=== PATIENT | male | born 1950 | race Caucasian/White ===

== ENCOUNTER 2017-02-13 15:09 | Emergency (ER) | payer MEDICARE, MEDICAID ==
[~2017-02-13 15:09] MED LIST: ADDE20XR PO; AZIT250T3 PO; BROMSYP PO; CHLOR50 PO; COLA100C3 PO; LORA-474 PO; LOSA50TA PO; MAGICADU2 SWISH-SWAL; METO50TA PO; OMEP20TA PO; REST0.05 EACH EYE
[2017-02-13 15:28] VITALS: BP 134/68; PULSE 88; RESP 18; TEMP 98.4; O2SAT 98
[2017-02-13] MEDS ORDERED: PIPERACIL-TAZO 4.5 GM PREMIX 100 ML IV STA (15:35)
[2017-02-13 15:38] VITALS: O2SAT 97
--- NOTE | 2017-02-13 15:40 | PD ---
HPI Chief Complaint: Chest Pain Time Seen by Provider: 15:39 Travel History International Travel<30 days: No Contact w/Intl Traveler<30days: No Traveled to known affect area: No History of Present Illness HPI Patient comes in complaining of possible UTI. Patient reports he began yesterday with a subjective fever and headache then began having sharp stabbing pain in his left ear pain, left-sided chest pain, and low back pain. Patient states that he has a history of frequent UTIs has been septic before. Patient states he's been taking ibuprofen for this and seems to help with the fevers. Last dose took shortly prior to arrival. He denies any nausea, vomiting, diarrhea, abdominal pain, shortness of breath, or numbness or tingling anywhere. Patient reports associated urinary incontinence that he states happens anytime he gets a urinary tract infection. Patient states he has a follow-up appointment scheduled with his primary care doctor tomorrow at 2 PM, but did not feels that he could wait until then for evaluation. PFSH Past Medical History ADHD: Yes Anxiety: Yes Depression: Yes Cardiovascular Problems: Yes COPD: Yes Diabetes: Yes Patient Takes Glucophage: No Diminished Hearing: No GERD: Yes Genitourinary: No Hepatitis: Yes (B) Hypertension: Yes Neurologic: No Respiratory: Yes (COPD) Immunizations Current: Yes Past Surgical History Genitourinary Surgery: Yes (TURP prostate sx 09/29/15) Tonsillectomy: Yes Other Surgery: Yes (pilonidal cyst) Social History Alcohol Use: Yes (OCCASSIONAL) Tobacco Use: No (USES VAPE) Substance Use: No Allergies-Medications (Allergen,Severity, Reaction): Coded Allergies: Hydrocodone (Verified Allergy, Intermediate, Cold, lowered pulse, 12/23/16) Codeine (Verified Allergy, Unknown, 12/23/16) Reported Meds & Prescriptions Reported Meds & Active Scripts Active Cipro (Ciprofloxacin HCl) 500 Mg Tab 500 Mg PO BID 7 Days Chlorthalidone 50 Mg Tab 50 Mg PO DAILY Omeprazole 20 Mg Tab 20 Mg PO DAILY Metoprolol Tartrate 50 Mg Tab 50 Mg PO BID Ativan (Lorazepam) 1 Mg Tab 1 Mg PO Q6H PRN Reported Advil (Ibuprofen) 200 Mg Tab 400 Mg PO Q6HR PRN Entecavir 0.5 Mg Tab 0.5 Mg PO DAILY Losartan (Losartan Potassium) 50 Mg Tab 50 Mg PO BID Amphetamine-Dextroamphetamine 20 Mg Tab 20 Mg PO BID Avoid late evening doses. Space doses at least 4 to 6 hours if more than once/day dosing. Restasis Opth Drops (Cyclosporine Opth Drops) 0.05% Emul 1 Drop EACH EYE BID Review of Systems Except as stated in HPI: all other systems reviewed are Neg Physical Exam Narrative GENERAL: Well-developed, overly nourished, in no acute distress, and non-ill appearing. SKIN: Focused skin assessment warm and dry. HEAD: Atraumatic. Normocephalic. EYES: Pupils equal and round. EOMI. No scleral icterus. No injection or drainage. ENT: No nasal bleeding or discharge. Mucous membranes pink and moist. Tympanic membranes pearly zimmer bilaterally. Posterior pharynx erythematous with exudate. Uvula is midline. NECK: Trachea midline. No cervical lymphadenopathy. Supple. No nuclear rigidity. CARDIOVASCULAR: Regular rate and rhythm. No murmur appreciated. RESPIRATORY: No accessory muscle use. No respiratory distress. Clear to auscultation. Breath sounds equal bilaterally. GASTROINTESTINAL: Abdomen soft, non-tender, nondistended. Hepatic and splenic margins not palpable. Normal bowel sounds 4. No pulsatile mass. MUSCULOSKELETAL: No obvious deformities. No clubbing. No cyanosis. No edema. Full range of motion. NEUROLOGICAL: Awake and alert. No obvious cranial nerve deficits. Motor grossly within normal limits. Normal speech. PSYCHIATRIC: Appropriate mood and affect; insight and judgment normal. Data Data Last Documented VS Vital Signs Date Time Temp Pulse Resp B/P Pulse Ox O2 Delivery O2 Flow Rate FiO2 02/13/17 15:38 97 Room Air 02/13/17 15:36 18 02/13/17 15:28 98.4 88 134/68 Orders Electrocardiogram (02/13/17 15:35) Complete Blood Count With Diff (02/13/17 15:35) Comprehensive Metabolic Panel (02/13/17 15:35) Prothrombin Time / Inr (Pt) (02/13/17 15:35) Act Partial Throm Time (Ptt) (02/13/17 15:35) Lactic Acid Sepsis Protocol (02/13/17 15:35) Magnesium (Mg) (02/13/17 15:35) Ckmb (Isoenzyme) Profile (02/13/17 15:35) Troponin I (02/13/17 15:35) Urinalysis - C+S If Indicated (02/13/17 15:35) Blood Culture (02/13/17 15:35) Chest, Single Ap (02/13/17 15:35) Blood Glucose (02/13/17 15:35) Ecg Monitoring (02/13/17 15:35) Iv Access Insert/Monitor (02/13/17 15:35) Oximetry (02/13/17 15:35) Oxygen Administration (02/13/17 15:35) Piperacil-Tazo 4.5 Gm Premix (Zosyn 4.5 (02/13/17 15:35) Sodium Chlor 0.9% 1000 Ml Inj (Ns 1000 M (02/13/17 16:45) Potassium Chloride (Kcl) (02/13/17 17:00) Urine Culture (02/13/17 17:15) Ciprofloxacin (Cipro) (02/13/17 18:15) Acetaminophen (Tylenol) (02/13/17 18:15) Labs Laboratory Tests Test 02/13/17 02/13/17 15:47 17:15 White Blood Count 14.4 TH/MM3 Red Blood Count 4.10 MIL/MM3 Hemoglobin 13.0 GM/DL Hematocrit 37.2 % Mean Corpuscular Volume 90.7 FL Mean Corpuscular Hemoglobin 31.7 PG Mean Corpuscular Hemoglobin 35.0 % Concent Red Cell Distribution Width 14.1 % Platelet Count 137 TH/MM3 Mean Platelet Volume 9.0 FL Neutrophils (%) (Auto) 85.0 % Lymphocytes (%) (Auto) 6.2 % Monocytes (%) (Auto) 8.5 % Eosinophils (%) (Auto) 0.2 % Basophils (%) (Auto) 0.1 % Neutrophils # (Auto) 12.2 TH/MM3 Lymphocytes # (Auto) 0.9 TH/MM3 Monocytes # (Auto) 1.2 TH/MM3 Eosinophils # (Auto) 0.0 TH/MM3 Basophils # (Auto) 0.0 TH/MM3 CBC Comment DIFF FINAL Differential Comment Prothrombin Time 11.4 SEC Prothromb Time International 1.0 RATIO Ratio Activated Partial 27.1 SEC Thromboplast Time Sodium Level 138 MEQ/L Potassium Level 3.1 MEQ/L Chloride Level 104 MEQ/L Carbon Dioxide Level 26.6 MEQ/L Anion Gap 7 MEQ/L Blood Urea Nitrogen 20 MG/DL Creatinine 1.04 MG/DL Estimat Glomerular Filtration 71 ML/MIN Rate Random Glucose 126 MG/DL Lactic Acid Level 2.0 mmol/L Calcium Level 8.9 MG/DL Magnesium Level 1.7 MG/DL Total Bilirubin 0.7 MG/DL Aspartate Amino Transf 14 U/L (AST/SGOT) Alanine Aminotransferase 21 U/L (ALT/SGPT) Alkaline Phosphatase 81 U/L Total Creatine Kinase 74 U/L Troponin I LESS THAN 0.02 NG/ML Total Protein 6.7 GM/DL Albumin 3.5 GM/DL Urine Color YELLOW Urine Turbidity HAZY Urine pH 6.0 Urine Specific Sharon 1.034 Urine Protein 30 mg/dL Urine Glucose (UA) NEG mg/dL Urine Ketones NEG mg/dL Urine Occult Blood MOD Urine Nitrite NEG Urine Bilirubin NEG Urine Urobilinogen LESS THAN 2.0 MG/DL Urine Leukocyte Esterase LARGE Urine RBC 8 /hpf Urine WBC 42 /hpf Urine Squamous Epithelial 1 /hpf Cells Urine Bacteria MANY /hpf Urine Mucus FEW /lpf Microscopic Urinalysis Comment CATH-CULTURE IND MDM Medical Decision Making Medical Screen Exam Complete: Yes Emergency Medical Condition: Yes Interpretation(s) EKG reviewed by shows sinus rhythm with a ventricular rate of 90. No STEMI. Differential Diagnosis UTI, atypical chest pain, sepsis, electrolyte abnormality, pneumonia, other Narrative Course The patient presentation with history and evaluation are consistent with UTI. There is no evidence of pyelonephritis. The patient is tolerating fluids. There is no clinical evidence to suggest atypical appendicitis. The patient was discharged on antibiotics and given warnings to return if condition worsens in any way, fever, vomiting and unable to tolerate medications or fluids, or as needed. The patient was instructed to follow up with their physician. The patient agrees with plan of care. Patient in no obvious distress upon re-evaluation. All pertinent laboratory/ Radiology result(s) discussed with patient. Discussed patient with Dr. Madrid , who saw and evaluated the patient and is in agreement with plan of care and disposition. Any questions/concerns in reference to patient diagnosis/ condition discussed and clarified prior to patient's discharge. Reinforced sheer importance of close follow up with patient's primary physician or primary care clinic. Instructed patient to return to ED immediately, if symptoms return/ worsen. Pt showed understanding of above instructions. Further instructions and recommendations were detailed in discharge paperwork. Pt ambulated without difficulty out of ED at discharge. Diagnosis Primary Impression: UTI (urinary tract infection) Qualified Code: N39.0 - Urinary tract infection without hematuria, site unspecified Additional Impression: Hypokalemia Patient Instructions: General Instructions, Hypokalemia (ED), Urinary Tract Infection in Men (DC) Additional Instructions: Follow-up with your primary care physician in 2-3 days for reevaluation. Take all medication as prescribed. Return to the emergency department if symptoms get worse. Med/Other Pt SpecificInfo: Prescription(s) given Scripts Ciprofloxacin (Cipro)500 Mg Una885 Mg PO BID 7 Days Ref 0 Prov:Pola Madrid MD 02/13/17 Disposition: 01 DISCHARGE HOME Condition: Stable Chris Hahn February 13, 2017 15:40
--- NOTE | 2017-02-13 15:58 | RADRPT ---
EXAM DATE/TIME: 02/13/2017 15:33 [facility] COMPARISON: CHEST SINGLE AP, June 06, 2016, 12:40. INDICATIONS : Chest pain MEDICAL HISTORY : Chronic obstructive pulmonary disease. SURGICAL HISTORY : None. ENCOUNTER: Initial ACUITY: 2 days PAIN SCORE: 4/10 LOCATION: Bilateral chest FINDINGS: 2 frontal views of the chest demonstrate the lungs to be symmetrically aerated without evidence of ma ss, infiltrate or effusion. The cardiomediastinal contours are unremarkable. Osseous structures are intact. CONCLUSION: No acute disease. Eduard Beth Jr., MD on February 13, 2017 at 15:55 Board Certified Radiologist. This report was verified electronically.
[2017-02-13] MEDS ORDERED: METO50TA PO (16:09)
[2017-02-13] MEDS ORDERED: LOSA50TA PO (16:09)
[2017-02-13] MEDS ORDERED: AMPH1TAB66 PO (16:09)
[2017-02-13] MEDS ORDERED: IBUP-988 PO (16:13)
[2017-02-13] MEDS ORDERED: ENTE1TAB PO (16:13)
[2017-02-13 16:21] LABS: AUTOMATED NEUTROPHIL # 12.2 TH/MM3 (1.8-7.7); BASOPHIL % 0.1 % (0.0-2.0); EOSINOPHIL % 0.2 % (0.0-4.0); HEMATOCRIT 37.2 % (39.0-51.0); HEMO FLAGS DIFF FINAL; LYMPH % 6.2 % (9.0-44.0); LYMPHOCYTE # 0.9 TH/MM3 (1.0-4.8); MEAN CELL VOLUME 90.7 FL (80.0-100.0); MEAN CORPUSCULAR HEMOGLOBIN 31.7 PG (27.0-34.0); MONO % 8.5 % (0.0-8.0); PLATELET COUNT 137 TH/MM3 (150-450); RED CELL DISTRIBUTION WIDTH 14.1 % (11.6-17.2); WHITE BLOOD COUNT 14.4 TH/MM3 (4.0-11.0)
[2017-02-13 16:40] LABS: ALT (GPT) 21 U/L (12-78); ANION GAP 7 MEQ/L (5-15); APTT (PATIENT) 27.1 SEC (24.3-30.1); AST (GOT) 14 U/L (15-37); BICARBONATE 26.6 MEQ/L (21.0-32.0); BLOOD UREA NITROGEN 20 MG/DL (7-18); CHLORIDE 104 MEQ/L (98-107); GLOMERULAR FILTRATION RATE 71 ML/MIN (>89); MAGNESIUM 1.7 MG/DL (1.5-2.5); POTASSIUM 3.1 MEQ/L (3.5-5.1); PROTHROMBIN TIME - PATIENT 11.4 SEC (9.8-11.6); SODIUM (NA) 138 MEQ/L (136-145)
[2017-02-13 16:43] LABS: ALKALINE PHOSPHATASE 81 U/L (45-117); TOTAL BILIRUBIN ADULT 0.7 MG/DL (0.2-1.0)
[2017-02-13] MEDS ORDERED: SODIUM CHLOR 0.9% 1000 ML INJ 1,000 ML IV ONE (16:45)
[2017-02-13] MEDS ORDERED: POTASSIUM CHLORIDE 20 MEQ CONTROLLED RELEASE TAB PO ONE (17:00)
[2017-02-13 17:14] LABS: CREATINE KINASE 74 U/L (39-308)
[2017-02-13 17:47] LABS: BACTERIA, URINE MANY /hpf; BLOOD, URINE MOD (NEG); GLUCOSE,URINE NEG (NEG); KETONE, URINE NEG (NEG); MUCUS URINE FEW /lpf (OCC); NITRITE,URINE NEG (NEG); SQUAMOUS EPITHELIAL CELL URINE 1 /hpf (0-5); URINE COLOR YELLOW (YELLW/STRAW)
[2017-02-13 17:48] LABS: COMMENT (UR) CATH-CULTURE IND; CULTURE IF INDICATED CATH CULTURE IND
[2017-02-13] MEDS ORDERED: CIPR-9 PO (18:09)
[2017-02-13] MEDS ORDERED: CIPROFLOXACIN 500 MG TAB PO ONE (18:15)
[2017-02-13] MEDS ORDERED: ACETAMINOPHEN 325 MG TAB PO ONE (18:15)
--- NOTE | 2017-02-13 18:20 | EKG ---
Date Performed: 02/13/2017 Time Performed: 15:27:45 PTAGE: 66 years EKG: Sinus rhythm NORMAL ECG PREVIOUS TRACING : 06/06/2016 12.19 No significant change from previous tracing noted. DOCTOR: Angel Olsen Interpretating Date/Time 02/13/2017 18:19:49
[2017-02-14] MEDS ORDERED: METO50TA PO (13:41)
[2017-02-14] MEDS ORDERED: CHLOR50 PO (13:41)
[2017-02-14] MEDS ORDERED: OMEP20TA PO (13:41)
[2017-02-14] MEDS ORDERED: LOSA50TA PO (13:41)
[2017-02-14] MEDS ORDERED: LORA-474 PO (13:41)
== END 2017-02-13 19:31 | disposition home or self-care (01) ==
LOC: NEPE 15:09
DX: N39.0 Urinary tract infection, site not specified (principal); E87.6 Hypokalemia; B96.20 Unspecified Escherichia coli [E. coli] as the cause of diseases classified elsewhere; R07.9 Chest pain, unspecified; M54.5 Low back pain; E11.9 Type 2 diabetes mellitus without complications; I10 Essential (primary) hypertension
CPT/HCPCS: 71010; 80053; 81001; 82550; 83605; 83735; 84484; 85025; 85610; 85730; 87040; 87077; 87086; 87186; 93005; 96365; 96366; 99285; J2543; J7030

== ENCOUNTER 2018-06-02 12:57 | Observation (INO) ==
[2018-06-02] MEDS ORDERED: Sod Chloride 0.9% Inj 1,000 ML IV.SIG ONE (13:56)
--- NOTE | 2018-06-02 14:27 | XR ---
EXAM DATE: 06/02/2018 2:23 PM EDT AGE/SEX: 67 years / Male INDICATIONS: Chest pain, short of breath, facial numbness CLINICAL DATA: This is the patient's initial encounter. Patient reports that signs and symptoms have been present for 4 - 6 days and indicates a pain score of 5/10. MEDICAL/SURGICAL HISTORY: Chronic obstructive pulmonary disease. Hepatitis B. None. COMPARISON: [facility] [place], CHEST SINGLE AP, 02/13/2017. . FINDINGS: No new focal pleural or parenchymal opacities. The cardiomediastinal contours are unremarkable. Osse ous structures are intact. CONCLUSION: 1. No acute abnormality or significant interval change. Electronically signed by: Chu Silva MD 06/02/2018 2:26 PM EDT
--- NOTE | 2018-06-02 14:39 | CT ---
EXAM DATE: 06/02/2018 2:36 PM EDT AGE/SEX: 67 years / Male INDICATIONS: Intermittent slurred speech, dizziness. CLINICAL DATA: This is the patient's initial encounter. Patient reports that signs and symptoms have been present for 1 day and indicates a pain score of 0/10. MEDICAL/SURGICAL HISTORY: Hyperparathyroidism. Hepatitis B. ADHD. Tonsillectomy. RADIATION DOSE: 63.56 CTDI (mGy) COMPARISON: [facility] [place], CT BRAIN W/O CONTRAST, 06/06/2016. . TECHNIQUE: CT of the head without contrast. Using automated exposure control and adjustment of the mA and/or kV according to patient size, radiation dose was kept as low as reasonably achievable to ob tain optimal diagnostic quality images. DICOM format image data is available electronically for revi ew and comparison. FINDINGS: Cerebrum: Mild diffuse cerebral atrophy. The ventricles are normal for degree of atrophy. No evidenc e of midline shift, mass lesion, hemorrhage or acute infarction. No extraaxial fluid collections are seen. Posterior Fossa: The cerebellum and brainstem are intact. The 4th ventricle is midline. The cerebe llopontine angle is unremarkable. Extracranial: The visualized portion of the orbits is intact. Skull: The calvaria is intact. No evidence of skull fracture. CONCLUSION: 1. No acute intracranial abnormality or significant interval change. . Electronically signed by: Chu Silva MD 06/02/2018 2:38 PM EDT
[2018-06-02 14:57] LABS: Chloride 102 meq/L (98-107); Potassium 3.4 meq/L (3.5-5.1); Sodium 138 meq/L (136-145)
[2018-06-02 14:59] LABS: Baso % (Auto) 0.4 % (0.0-2.0); Eos # (Auto) 0.1 th/mm3 (0.0-0.4); Eos % (Auto) 1.4 % (0.0-4.0); Hematocrit 42.3 % (39.0-51.0); Hemoglobin 14.6 gm/dL (13.0-17.0); Lymph # (Auto) 1.5 th/mm3 (1.0-4.8); Lymph % (Auto) 33.7 % (9.0-44.0); Mean Corpuscular HGB Conc 34.4 % (32.0-36.0); Mean Corpuscular Hemoglobin 30.5 pg (27.0-34.0); Mean Corpuscular Volume 88.7 fL (80.0-100.0); Mean Platelet Volume 8.8 fL (7.0-11.0); Mono # (Auto) 0.4 th/mm3 (0.0-0.9); Mono % (Auto) 8.4 % (0.0-8.0); Neut # (Auto) 2.6 th/mm3 (1.8-7.7); Neut % (Auto) 56.1 % (16.0-70.0); Platelet Count 158 th/mm3 (150-450); Red Blood Count 4.77 mil/mm3 (4.50-5.90); Red Cell Distribution Width 14.2 % (11.6-17.2); White Blood Count 4.6 th/mm3 (4.0-11.0)
[2018-06-02 15:01] LABS: Albumin 4.5 g/dL (3.4-5.0); Anion Gap 12 meq/L (5-15); Blood Urea Nitrogen 50 mg/dL (7-18); Calcium 9.2 mg/dL (8.5-10.1); Carbon Dioxide 23.9 meq/L (21.0-32.0); Glucose,Random 102 mg/dL (74-106)
[2018-06-02 15:04] LABS: Activated Partial Thrombo Time 24.7 sec (24.3-30.1); Alanine Aminotransferase 18 U/L (12-78); Aspartate Aminotransferase 15 U/L (15-37); INR 1.1 Ratio
[2018-06-02 15:05] LABS: Glomerular Filtration Rate 16 mL/min (>89)
[2018-06-02 15:06] LABS: Total Protein 8.1 g/dL (6.4-8.2)
[2018-06-02 15:07] LABS: Alkaline Phosphatase 89 U/L (45-117)
[2018-06-02 15:12] LABS: Creatine Kinase 86 U/L (39-308)
--- NOTE | 2018-06-02 16:26 | ED ---
HPI General Chief complaint: Neuro Symptoms/Deficit Stated complaint: neuro sxs 36-48 hrs/numbness/slurred speech postur History of Present Illness HPI narrative: 67-year-old male here for evaluation of generalized weakness. Patient states his symptoms started about 1 week ago, he thinks he could have had a stroke, he states the weakness is more, since he was on and off numbness and tingling, no slurred speech, no trauma. Patient states he has history of hypertension that has not been well controlled over the last few weeks, history of [place] and migraines. He denies any chest pain or shortness of breath. Related Data Home Medications Medication Instructions Recorded Confirmed Restasis 0.5 EACH EYE DAILY 06/02/18 amphetamine 20 mg PO BID 06/02/18 06/02/18 brimonidine 0.2 EACH EYE BID 06/02/18 chlorthalidone 50 mg PO DAILY 06/02/18 06/02/18 entecavir 0.5 mg PO DAILY 06/02/18 06/02/18 lorazepam 1 mg PO TID 06/02/18 06/02/18 losartan 50 mg PO BID 06/02/18 06/02/18 omeprazole 20 mg PO DAILY 06/02/18 06/02/18 Allergies Allergy/AdvReac Type Severity Reaction Status Date / Time hydrocodone Allergy Intermediate Cold, Verified 06/02/18 13:59 lowered pulse codeine Allergy Unknown Nausea/Vomi Verified 06/02/18 13:59 ting Review of Systems ROS: all other systems reviewed are negative [facility] Medical History Medical History ADHD (Acute) HTN (hypertension) (Acute) Hx of renal failure (Acute) Sleep apnea (Acute) Surgical History Surgical History History of prostate surgery (Acute) Hx of tonsillectomy (Acute) Social History Social History Substance History: No History of Abuse Second Hand Smoke Exposure: No Smoking Status: Former smoker How Often Do You Have a Drink Containing Alcohol: Monthly or less Recent Travel in [facility] within the Last 8 Weeks: No Recent Out of Country Travel within the Last 8 Weeks: No Immunization History Tetanus Immunization: Unsure Hx Influenza Vaccine This Season: No Exam Narrative Exam Narrative: GENERAL: Alert oriented 3 no acute distress. SKIN: Focused skin assessment warm/dry. HEAD: Atraumatic. Normocephalic. EYES: Pupils equal and round. No scleral icterus. No injection or drainage. ENT: No nasal bleeding or discharge. Mucous membranes pink and moist. NECK: Trachea midline. No JVD. CARDIOVASCULAR: Regular rate and rhythm. No murmur appreciated. RESPIRATORY: No accessory muscle use. Clear to auscultation. Breath sounds equal bilaterally. GASTROINTESTINAL: Abdomen soft, non-tender, nondistended. Hepatic and splenic margins not palpable. MUSCULOSKELETAL: No obvious deformities. No clubbing. No cyanosis. No edema. NEUROLOGICAL: Awake and alert. No obvious cranial nerve deficits. Motor grossly within normal limits. Normal speech. PSYCHIATRIC: Appropriate mood and affect; insight and judgment normal. Course Initial Documented Vital Signs Temperature 97.5 F L 06/02/18 13:08 Pulse Rate 91 H 06/02/18 13:08 Respiratory Rate 20 06/02/18 13:08 Blood Pressure 111/60 06/02/18 13:08 Pulse Oximetry 99 06/02/18 13:08 Last Documented Vital Signs Temperature 97.5 F L 06/02/18 13:08 Pulse Rate 62 06/02/18 16:19 Respiratory Rate 16 06/02/18 16:19 Blood Pressure 111/75 06/02/18 16:19 Pulse Oximetry 100 06/02/18 16:19 Medical Decision Making [facility] Narrative Medical decision making narrative: 67-year-old male here for evaluation of generalized weakness. Complete physical examination reveals no focal neurological deficits, symptoms started about a week ago, labs are reasonably within normal limits for elevated BUN and creatinine compared to last labs which was in 2017 I am concerned about the acute renal insufficiency that is evident by the elevated BUN/creatinine and believe the patient would benefit from admission for acute renal insufficiency. I give the patient 1 L of IV fluids, I am awaiting for urine output, if the patient is unable to pee we will put the Wayne catheter and to monitor I&O. Medical Screen Exam Complete: Yes Emergency Medical Condition: Yes Lab Data Result diagrams: 06/02/18 14:35 06/02/18 14:35 Lab Results 06/02/18 06/02/18 06/02/18 Range/Units 14:14 14:35 14:35 CBC w Diff Auto diff final WBC 4.6 (4.0-11.0) th/mm3 RBC 4.77 (4.50-5.90) mil/mm3 Hgb 14.6 (13.0-17.0) gm/dL Hct 42.3 (39.0-51.0) % MCV 88.7 (80.0-100.0) fL MCH 30.5 (27.0-34.0) pg MCHC 34.4 (32.0-36.0) % RDW 14.2 (11.6-17.2) % Plt Count 158 (150-450) th/mm3 MPV 8.8 (7.0-11.0) fL Neut % (Auto) 56.1 (16.0-70.0) % Lymph % (Auto) 33.7 (9.0-44.0) % Lares % (Auto) 8.4 H (0.0-8.0) % Eos % (Auto) 1.4 (0.0-4.0) % Baso % (Auto) 0.4 (0.0-2.0) % Neut # (Auto) 2.6 (1.8-7.7) th/mm3 Lymph # (Auto) 1.5 (1.0-4.8) th/mm3 Lares # (Auto) 0.4 (0.0-0.9) th/mm3 Eos # (Auto) 0.1 (0.0-0.4) th/mm3 Baso # (Auto) 0.0 (0.0-0.2) th/mm3 WBC Differential . Differential Comment . PT 11.0 (9.8-11.6) sec INR 1.1 Ratio APTT 24.7 (24.3-30.1) sec Sodium (136-145) meq/L Potassium (3.5-5.1) meq/L Chloride (98-107) meq/L Carbon Dioxide (21.0-32.0) meq/L Anion Gap (5-15) meq/L BUN (7-18) mg/dL Creatinine (0.60-1.30) mg/dL Estimated GFR (>89) mL/min POC Glucose 98 (68-110) mg/dl Random Glucose (74-106) mg/dL Calcium (8.5-10.1) mg/dL Total Bilirubin (0.2-1.0) mg/dL AST (15-37) U/L ALT (12-78) U/L Alkaline Phosphatase (45-117) U/L Total Creatine Kinase (39-308) U/L Troponin I (0.02-0.05) ng/mL Total Protein (6.4-8.2) g/dL Albumin (3.4-5.0) g/dL 06/02/18 Range/Units 14:35 CBC w Diff WBC (4.0-11.0) th/mm3 RBC (4.50-5.90) mil/mm3 Hgb (13.0-17.0) gm/dL Hct (39.0-51.0) % MCV (80.0-100.0) fL MCH (27.0-34.0) pg MCHC (32.0-36.0) % RDW (11.6-17.2) % Plt Count (150-450) th/mm3 MPV (7.0-11.0) fL Neut % (Auto) (16.0-70.0) % Lymph % (Auto) (9.0-44.0) % Lares % (Auto) (0.0-8.0) % Eos % (Auto) (0.0-4.0) % Baso % (Auto) (0.0-2.0) % Neut # (Auto) (1.8-7.7) th/mm3 Lymph # (Auto) (1.0-4.8) th/mm3 Lares # (Auto) (0.0-0.9) th/mm3 Eos # (Auto) (0.0-0.4) th/mm3 Baso # (Auto) (0.0-0.2) th/mm3 WBC Differential Differential Comment PT (9.8-11.6) sec INR Ratio APTT (24.3-30.1) sec Sodium 138 (136-145) meq/L Potassium 3.4 L (3.5-5.1) meq/L Chloride 102 (98-107) meq/L Carbon Dioxide 23.9 (21.0-32.0) meq/L Anion Gap 12 (5-15) meq/L BUN 50 H (7-18) mg/dL Creatinine 3.80 H (0.60-1.30) mg/dL Estimated GFR 16 L (>89) mL/min POC Glucose (68-110) mg/dl Random Glucose 102 (74-106) mg/dL Calcium 9.2 (8.5-10.1) mg/dL Total Bilirubin 1.1 H (0.2-1.0) mg/dL AST 15 (15-37) U/L ALT 18 (12-78) U/L Alkaline Phosphatase 89 (45-117) U/L Total Creatine Kinase 86 (39-308) U/L Troponin I Less than 0.02 L (0.02-0.05) ng/mL Total Protein 8.1 (6.4-8.2) g/dL Albumin 4.5 (3.4-5.0) g/dL Imaging Data Radiologist's impression: Chest X-Ray 06/02/18 13:56 CONCLUSION: 1. No acute abnormality or significant interval change. Head CT 06/02/18 13:56 CONCLUSION: 1. No acute intracranial abnormality or significant interval change. . Discharge Plan Discharge Disposition Patient Disposition: 30 Still Patient Discharge Condition Condition: Stable Discharge Details Diagnosis: Acute kidney insufficiency Physicians Team ED Provider: Ascencion Irizarry Primary Care Provider: UNKNOWN, Attending Provider: Gurpreet Wilhelm Discharge Interventions Interventions: Vital Signs Last Done: 06/02/18 16:19 Status ED Status: Admitted Observation Patient
[2018-06-02 16:39] LABS: Clarity,Urine Clear (Clear); Color,Urine Yellow (Yellw/Straw); Glucose,Urine (UA) Negative (Negative); Leukocyte Esterase,Urine Negative (Negative); Nitrite,Urine Negative (Negative); PH,Urine 5.5 (5.0-8.5); Specific Gravity,Urine 1.025 (1.002-1.035); Urobilinogen,Urine 0.2 mg/dL (Less than 2)
[2018-06-02 16:52] LABS: Bilirubin,Urine Negative (Negative)
[2018-06-02 16:56] LABS: Mucus,Urine Rare /lpf (Occasional)
[2018-06-02] MEDS ORDERED: Acetaminophen 325 MG Tablet PO PRN (17:02)
[2018-06-02] MEDS ORDERED: Dextrose 50% in Water 50 ML Vial IV.PUSH PRN (17:12)
[2018-06-02] MEDS: Potassium Chloride Inj 10 MEQ in Sod Chloride 0.9% Inj 1,000 ML IV.CONT SCH (18:16)
--- NOTE | 2018-06-02 18:27 | P.HP ---
History of Present Illness Primary Care Physician: UNKNOWN History of Present Illness: 67-year-old male with a history of hepatitis B, sleep apnea, ADHD, Mnire's disease presents to the ER following a fall that occurred 4 days ago and subsequent periods of loss of thought (confusion). He decided after 2-3 days to come into the ER when his symptoms of lightheadedness and confusion were not resolving on their own. He gives me a protracted history that includes some interesting metabolic tid bits. Last September 19 he weighed 330 pounds, he started walking and eating a low-carb high-protein diet. He increased his walking over time to 10 miles per day and managed to lose 100 pounds. He felt good so he adopted bike riding and currently rides his bike 5 miles to the [facility] 3 times a week and progresses to work out aggressively on the circuits. He has a habit of drinking approximately 3 gallons of water daily. Patient denies any nausea vomiting or diarrhea. Patient denies any chest pain, arrhythmia, diaphoresis. Review of Systems All other systems reviewed negative except as stated in HPI PMFSH - History History Provided By: Patient - Medical History Medical History: Medical History (Last Updated 06/02/18 @ 13:53 by Daksha Garcia RN) ADHD HTN (hypertension) Hx of renal failure Sleep apnea - Surgical History Surgical History: Surgical History (Last Updated 06/02/18 @ 13:53 by Daksha Garcia RN) History of prostate surgery Hx of tonsillectomy - Family History Family History: Family History (Last Updated 06/02/18 @ 18:24 by Gurpreet Wilhelm MD) Other Hypertension - Tobacco History Second Hand Smoke Exposure: No Tobacco Use In Past 30 Days: No Smoking Status: Former smoker - Alcohol History How Often Do You Have a Drink Containing Alcohol: Monthly or less - Substance Use History Substance History: No History of Abuse - Travel History Recent Travel in the [place] Within the Last 8 Weeks: No Recent Travel Out of the Country Within the Last 8 Weeks: No - Immunization History Tetanus Immunization: Unsure Hx Influenza Vaccine This Season: No Medications and Allergies Active Medications: Active Medications Acetaminophen (Tylenol) 650 mg PO Q4H PRN PRN Reason: Temp > 100.4 Al Hydroxide/Mg Hydroxide (Milk Of Magnesia Liq) 30 ml PO Q12H PRN PRN Reason: Mild Constipation Dextrose (D50w Vial) 50 ml IV.PUSH UNSCH PRN PRN Reason: PER HYPOGLYCEMIA PROTOCOL Glucagon (Glucagon Inj) 1 mg OTHER PRN PRN PRN Reason: for Hypoglycemia Protocol Potassium Chloride 10 meq/ (Sodium Chloride) 1,005 mls @ 100 mls/hr IV.CONT .Q10H3M [facility] Last Admin: 06/02/18 18:16 Dose: 100 mls/hr Insulin Human Regular (Novolin R Correctional Sugar Inj) 0 units SQ ACHS TERESSA; Protocol Allergies Allergy/AdvReac Type Severity Reaction Status Date / Time hydrocodone Allergy Intermediate Cold, Verified 06/02/18 13:59 lowered pulse codeine Allergy Unknown Nausea/Vomi Verified 06/02/18 13:59 ting Home Medications Medication Instructions Recorded Confirmed Type Restasis 0.5 EACH EYE DAILY 06/02/18 History amphetamine 20 mg PO BID 06/02/18 06/02/18 History brimonidine 0.2 EACH EYE BID 06/02/18 History chlorthalidone 50 mg PO DAILY 06/02/18 06/02/18 History entecavir 0.5 mg PO DAILY 06/02/18 06/02/18 History lorazepam 1 mg PO TID 06/02/18 06/02/18 History losartan 50 mg PO BID 06/02/18 06/02/18 History omeprazole 20 mg PO DAILY 06/02/18 06/02/18 History Exam Vital signs: Vital Signs 06/02/18 13:08 06/02/18 13:48 06/02/18 15:00 Temperature 97.5 F L Pulse Rate 91 H 87 77 Respiratory Rate 20 16 16 Blood Pressure 111/60 140/78 104/68 Pulse Oximetry 99 100 98 06/02/18 16:19 06/02/18 17:29 06/02/18 18:03 Temperature 96.8 F L Pulse Rate 62 62 56 L Respiratory Rate 16 16 20 Blood Pressure 111/75 121/81 156/82 H Pulse Oximetry 100 100 99 Intake & Output 06/01/18 06/02/18 06/02/18 18:59 06:59 18:59 Weight 97.3 kg Other: Weight On Admission 97.3 kg Narrative: GENERAL: AAOx3, no acute distress, adequate nutrition SKIN: Warm and dry, no rashes. HEAD: Atraumatic. Normocephalic. Dry oral mucosa EYES: Pupils equal, round, reactive to light. No scleral icterus. No injection or drainage. ENT: No nasal bleeding or discharge. Moist mucous membranes. Nonerythematous oropharynx. NECK: Trachea midline. No JVD. Thyroid size within normal limits. CARDIOVASCULAR: Regular rate and rhythm. No murmur, no gallops, no rubs. RESPIRATORY: Clear and equal to auscultation bilaterally. No crackles, no wheezes. No accessory muscle use. GASTROINTESTINAL: Abdomen soft, non-tender, nondistended, normal active bowel sounds. Hepatic and splenic margins not palpable. MUSCULOSKELETAL: Extremities without clubbing or cyanosis. No obvious deformities. No edema. NEUROLOGICAL: Awake and alert. No obvious cranial nerve deficits. Motor grossly within normal limits. No focal deficits. Five out of 5 muscle strength in the arms and legs. Normal speech. PSYCHIATRIC: Appropriate mood and affect; insight and judgment normal. Results - Labs CBC & Chem 7: 06/02/18 14:35 06/02/18 14:35 Labs: Laboratory Results - last 24 hr 06/02/18 06/02/18 06/02/18 14:14 14:35 14:35 CBC w Diff Auto diff final WBC 4.6 RBC 4.77 Hgb 14.6 Hct 42.3 MCV 88.7 MCH 30.5 MCHC 34.4 RDW 14.2 Plt Count 158 MPV 8.8 Neut % (Auto) 56.1 Lymph % (Auto) 33.7 [place] % (Auto) 8.4 H Eos % (Auto) 1.4 Baso % (Auto) 0.4 Neut # (Auto) 2.6 Lymph # (Auto) 1.5 [place] # (Auto) 0.4 Eos # (Auto) 0.1 Baso # (Auto) 0.0 WBC Differential . Differential Comment . PT 11.0 INR 1.1 APTT 24.7 Sodium Potassium Chloride Carbon Dioxide Anion Gap BUN Creatinine Estimated GFR POC Glucose 98 Random Glucose Calcium Total Bilirubin AST ALT Alkaline Phosphatase Total Creatine Kinase Troponin I Total Protein Albumin Ur Collection Type Urine Color Urine Clarity Urine pH Ur Specific [place] Urine Protein Urine Glucose (UA) Urine Ketones Urine Occult Blood Urine Nitrate Urine Bilirubin Urine Urobilinogen Ur Leukocyte Esterase Urine WBC Ur Squamous Epith Cells Hyaline Casts Urine Mucus Micro UA Comment Urine Culture Comments 08/18/18 08/18/18 14:35 16:30 CBC w Diff WBC RBC Hgb Hct MCV MCH MCHC RDW Plt Count MPV Neut % (Auto) Lymph % (Auto) [place] % (Auto) Eos % (Auto) Baso % (Auto) Neut # (Auto) Lymph # (Auto) [place] # (Auto) Eos # (Auto) Baso # (Auto) WBC Differential Differential Comment PT INR APTT Sodium 138 Potassium 3.4 L Chloride 102 Carbon Dioxide 23.9 Anion Gap 12 BUN 50 H Creatinine 3.80 H Estimated GFR 16 L POC Glucose Random Glucose 102 Calcium 9.2 Total Bilirubin 1.1 H AST 15 ALT 18 Alkaline Phosphatase 89 Total Creatine Kinase 86 Troponin I Less than 0.02 L Total Protein 8.1 Albumin 4.5 Ur Collection Type Clean catch Urine Color Yellow Urine Clarity Clear Urine pH 5.5 Ur Specific [place] 1.025 Urine Protein Negative Urine Glucose (UA) Negative Urine Ketones Trace Urine Occult Blood Negative Urine Nitrate Negative Urine Bilirubin Negative Urine Urobilinogen 0.2 Ur Leukocyte Esterase Negative Urine WBC 6-8 H Ur Squamous Epith Cells 6-10 H Hyaline Casts 11-30 H Urine Mucus Rare Micro UA Comment Culture not ind Urine Culture Comments Culture not ind - Imaging Impressions Chest X-Ray 06/02/18 13:56 CONCLUSION: 1. No acute abnormality or significant interval change. Head CT 06/02/18 13:56 CONCLUSION: 1. No acute intracranial abnormality or significant interval change. . Caprini VTE Risk Assessment Caprini VTE Risk Assessment: Moderate/High Risk (score >= 2) Caprini Risk Assessment Model: Point Value = 1 Point Value = 2 Point Value = 3 Point Value = 5 Age 41-60 Minor surgery BMI > 25 kg/m2 Swollen legs Varicose veins or History of unexplained or recurrent spontaneous Oral contraceptives or hormone replacement Sepsis (< 1 month) Serious lung disease, including pneumonia (< 1 month) Abnormal pulmonary function Acute myocardial infarction Congestive heart failure (< 1 month) History of inflammatory bowel disease Medical patient at bed rest Age 61-74 Arthroscopic surgery Major open surgery (> 45 min) Laparoscopic surgery (> 45 min) Malignancy Confined to bed (> 72 hours) Immobilizing plaster cast Central venous access Age >= 75 History of VTE Family history of VTE Factor V Leiden Prothrombin [id number] Lupus anticoagulant Anticardiolipin antibodies Elevated serum homocysteine Heparin-induced thrombocytopenia Other congenital or acquired thrombophilia Stroke (< 1 month) Elective arthroplasty Hip, pelvis, or leg fracture Acute spinal cord injury (< 1 month) Prophylaxis Regimen: Total Risk Factor Score Risk Level Prophylaxis Regimen 0-1 Low Early ambulation 2 Moderate Order ONE of the following: *Sequential Compression Device (SCD) *Heparin 5000 units SQ BID 3-4 Higher Order ONE of the following medications: *Heparin 5000 units SQ TID *Enoxaparin/Lovenox 40 mg SQ daily (WT < 150 kg, CrCl > 30 mL/min) *Enoxaparin/Lovenox 30 mg SQ daily (WT < 150 kg, CrCl > 10-29 mL/min) *Enoxaparin/Lovenox 30 mg SQ BID (WT < 150 kg, CrCl > 30 mL/min) AND/OR *Sequential Compression Device (SCD) 5 or more Highest Order ONE of the following medications: *Heparin 5000 units SQ TID (Preferred with Epidurals) *Enoxaparin/Lovenox 40 mg SQ daily (WT < 150 kg, CrCl > 30 mL/min) *Enoxaparin/Lovenox 30 mg SQ daily (WT < 150 kg, CrCl > 10-29 mL/min) *Enoxaparin/Lovenox 30 mg SQ BID (WT < 150 kg, CrCl > 30 mL/min) AND *Sequential Compression Device (SCD) Assessment and Plan - Plan Acute renal insufficiency, elevated creatinine Patient presents with lightheadedness, intermittent confusion, generalized malaise Rehydrate with IV fluids overnight and follow creatinine level with a.m. labs Had a brief discussion about homeostasis of the body in the context of drinking 3 gallons daily and having a low-carb/high-protein diet beyond weight loss Hypokalemia Borderline 10 mEq of potassium and IV fluids overnight Follow with a.m. labs Type 2 diabetes Accu-Cheks with sliding scale insulin coverage Diabetic diet Insomnia Patient has a history of insomnia and sleepwalking, ADHD Melatonin scheduled at night Temazepam for breakthrough insomnia DVT Prophylaxis Lovenox
[2018-06-02] MEDS ORDERED: Temazepam 15 MG Capsule PO PRN (18:28)
[2018-06-02] MEDS ORDERED: Insulin NovoLIN Regular Correctional Sugar Inj SQ SCH (21:00)
[2018-06-02] MEDS: Melatonin 5 MG Tablet PO SCH (21:12)
[2018-06-03] MEDS: Potassium Chloride Inj 10 MEQ in Sod Chloride 0.9% Inj 1,000 ML IV.CONT SCH ×3 (04:26→23:53)
[2018-06-03 06:33] LABS: Hematocrit 39.9 % (39.0-51.0); Hemoglobin 13.6 gm/dL (13.0-17.0); Mean Corpuscular HGB Conc 33.9 % (32.0-36.0); Mean Corpuscular Volume 91.4 fL (80.0-100.0); Mean Platelet Volume 8.9 fL (7.0-11.0); Platelet Count 112 th/mm3 (150-450); Red Blood Count 4.37 mil/mm3 (4.50-5.90); Red Cell Distribution Width 13.7 % (11.6-17.2); White Blood Count 3.2 th/mm3 (4.0-11.0)
[2018-06-03 06:44] LABS: Potassium 3.4 meq/L (3.5-5.1)
[2018-06-03 06:47] LABS: Calcium 8.9 mg/dL (8.5-10.1)
[2018-06-03 06:48] LABS: Carbon Dioxide 27.7 meq/L (21.0-32.0)
--- NOTE | 2018-06-03 15:02 | ECG ---
Date Performed: 06/02/2018 Time Performed: 14:09:01 PTAGE: 67 years EKG: Sinus rhythm NORMAL ECG Since PREVIOUS TRACING , no significant change noted PREVIOUS TRACIN02/13/2017 15.27 DOCTOR: Chalino Hanson Interpretating Date/Time 06/03/2018 15:00:49
--- NOTE | 2018-06-03 16:44 | P.PNIM ---
Subjective Interval history: Mr. Swann complains of some vertigo today. He states he is feeling a little bit better but still feels generally weak. His labs reflect that he is only half-way back to reasonable creatinine. Physical Exam Vital signs: Vital Signs 06/02/18 17:29 06/02/18 18:03 06/02/18 18:30 Temperature 96.8 F L Pulse Rate 62 56 L 62 Respiratory Rate 16 20 Blood Pressure 121/81 156/82 H Pulse Oximetry 100 99 06/02/18 20:00 06/03/18 00:00 06/03/18 04:00 Temperature 96.2 F L 96.8 F L 97.0 F L Pulse Rate 62 60 56 L Respiratory Rate 18 18 18 Blood Pressure 120/61 121/64 121/64 Pulse Oximetry 98 99 99 06/03/18 04:30 06/03/18 07:27 06/03/18 11:13 Temperature 96.5 F L 96.4 F L 96.6 F L Pulse Rate 51 L 53 L 52 L Respiratory Rate 18 20 20 Blood Pressure 128/84 144/73 H 115/58 L Pulse Oximetry 100 99 98 06/03/18 15:27 Temperature 96.9 F L Pulse Rate 55 L Respiratory Rate 20 Blood Pressure 120/60 Pulse Oximetry 98 Intake & Output 06/02/18 06/03/18 06/03/18 18:59 06:59 18:59 Intake Total 2004 1005 / 1005 Output Total 650 / 650 Balance 1355 / 1355 1005 / 1005 Weight 97.3 kg 98.8 kg Intake: IV 2004 1005 / 1005 KCl Inj 10 MEQ In NS Inj 1,000 1005 / 1005 1005 / 1005 ML @ 100 mls/hr IV.CONT .Q10H3M [facility]ESSA Rx#:[id number] NS Inj 1,000 ML @ Wide Open IV. 1000 / 1000 SIG BOLUS ONE Rx#:[id number] Output: Urine 650 / 650 Other: # Voids 3 Weight On Admission 97.3 kg Narrative: GENERAL: AAOx3, no acute distress SKIN: Warm and dry. No rashes. 1 cm basal cell carcinoma on posterior right calf at sock line HEAD: Atruamtic, normocephalic. Dry oral mucosa EYES: No scleral icterus. No injection or drainage. ENT: Moist mucous membranes, patent nares, no erythema of oropharynx. NECK: Supple, trachea midline. No JVD or lymphadenopathy. Normal thyroid. CARDIOVASCULAR: Regular rate and rhythm. No murmurs, gallops, or rubs. RESPIRATORY: Breath sounds clear equal bilaterally. No crackles or wheezes. No accessory muscle use. GASTROINTESTINAL: Abdomen soft, non-tender, nondistended, normal active bowel sounds MUSCULOSKELETAL: No cyanosis, or edema. NEURO: CN II-XII grossly intact, no focal deficits, no slurring of speech Results - Labs CBC & Chem 7: 06/03/18 05:44 06/03/18 05:44 Laboratory Results - last 24 hr 06/02/18 06/03/18 06/03/18 16:30 05:44 05:44 WBC 3.2 L RBC 4.37 L Hgb 13.6 Hct 39.9 MCV 91.4 MCH 31.0 MCHC 33.9 RDW 13.7 Plt Count 112 L MPV 8.9 Sodium 141 Potassium 3.4 L Chloride 105 Carbon Dioxide 27.7 Anion Gap 8 BUN 46 H Creatinine 2.90 H Estimated GFR 22 L Random Glucose 96 Calcium 8.9 Ur Collection Type Clean catch Urine Color Yellow Urine Clarity Clear Urine pH 5.5 Ur Specific [place] 1.025 Urine Protein Negative Urine Glucose (UA) Negative Urine Ketones Trace Urine Occult Blood Negative Urine Nitrate Negative Urine Bilirubin Negative Urine Urobilinogen 0.2 Ur Leukocyte Esterase Negative Urine WBC 6-8 H Ur Squamous Epith Cells 6-10 H Hyaline Casts 11-30 H Urine Mucus Rare Micro UA Comment Culture not ind Urine Culture Comments Culture not ind Assessment and Plan - Plan Acute renal insufficiency, elevated creatinine Patient presents with lightheadedness, intermittent confusion, generalized malaise Urine is still concentrated, mouth is still dry, continue IV fluid rehydration Creatinine dropped from 3.7 to 2.9 Recommend not drinking 3 gallons daily, focus on drinking less than 1 gallon Recommend reducing protein in diet, replace with high-fiber natural carbohydrates such as vegetables and legumes Follow creatinine level with a.m. labs Hypokalemia Borderline Continue fluids with 10 mEq of potassium Follow-up a.m. labs Type 2 diabetes Accu-Cheks with sliding scale insulin coverage Diabetic diet Insomnia Patient has a history of insomnia and sleepwalking, ADHD Melatonin scheduled at night Temazepam for breakthrough insomnia DVT Prophylaxis Lovenox
[2018-06-03] MEDS: Melatonin 5 MG Tablet PO SCH (21:17)
[2018-06-04 09:33] LABS: Baso % (Auto) 1.4 % (0.0-2.0); Eos # (Auto) 0.1 th/mm3 (0.0-0.4); Eos % (Auto) 2.7 % (0.0-4.0); Hematocrit 38.6 % (39.0-51.0); Hemoglobin 12.9 gm/dL (13.0-17.0); Lymph % (Auto) 34.9 % (9.0-44.0); Mean Corpuscular HGB Conc 33.3 % (32.0-36.0); Mean Corpuscular Hemoglobin 30.4 pg (27.0-34.0); Mean Corpuscular Volume 91.5 fL (80.0-100.0); Mean Platelet Volume 8.6 fL (7.0-11.0); Mono # (Auto) 0.2 th/mm3 (0.0-0.9); Mono % (Auto) 7.4 % (0.0-8.0); Neut # (Auto) 1.6 th/mm3 (1.8-7.7); Neut % (Auto) 53.6 % (16.0-70.0); Platelet Count 111 th/mm3 (150-450); Red Blood Count 4.22 mil/mm3 (4.50-5.90); Red Cell Distribution Width 13.5 % (11.6-17.2); White Blood Count 2.9 th/mm3 (4.0-11.0)
[2018-06-04 09:56] LABS: Calcium 8.4 mg/dL (8.5-10.1); Potassium 3.6 meq/L (3.5-5.1)
[2018-06-04 09:57] LABS: Carbon Dioxide 28.6 meq/L (21.0-32.0)
[2018-06-04] MEDS: Potassium Chloride Inj 10 MEQ in Sod Chloride 0.9% Inj 1,000 ML IV.CONT SCH ×2 (10:06→20:54)
--- NOTE | 2018-06-04 13:01 | P.PN ---
Subjective Interval history: Follow-up acute kidney injury. Does not want to go home yet. Got dizzy sitting up not been OOB Physical Exam Vital signs: Vital Signs 06/03/18 15:27 06/03/18 20:00 06/04/18 08:00 Temperature 96.9 F L 96.2 F L 97.5 F L Pulse Rate 55 L 53 L 45 L Respiratory Rate 20 18 Blood Pressure 120/60 113/65 129/79 Pulse Oximetry 98 98 100 06/04/18 12:00 Temperature 96.9 F L Pulse Rate 54 L Respiratory Rate 20 Blood Pressure 120/70 Pulse Oximetry 97 Intake & Output 06/03/18 06/04/18 06/04/18 18:59 06:59 18:59 Intake Total 1845 / 1845 1480 / 1480 1005 / 1005 Output Total 1000 / 1000 1025 / 1025 Balance 845 / 845 455 / 455 1005 / 1005 Weight 98.8 kg Intake: IV 1005 / 1005 1000 / 1000 1005 / 1005 KCl Inj 10 MEQ In NS Inj 1,000 1005 / 1005 1000 / 1000 1005 / 1005 ML @ 100 mls/hr IV.CONT .Q10H3M [facility] Rx#:[id number] Oral 840 / 840 480 / 480 Output: Urine 1000 / 1000 1025 / 1025 Other: Date of Last Bowel Movement 06/03/18 # Bowel Movements 1 Narrative: GENERAL: AAOx3, no acute distress SKIN: Warm and dry. No rashes. 1 cm basal cell carcinoma on posterior right calf at sock line CARDIOVASCULAR: Regular rate and rhythm. No murmurs, gallops, or rubs. RESPIRATORY: Breath sounds clear equal bilaterally. No crackles or wheezes. No accessory muscle use. GASTROINTESTINAL: Abdomen soft, non-tender, nondistended, normal active bowel sounds MUSCULOSKELETAL: No cyanosis, or edema. NEURO: CN II-XII grossly intact, no focal deficits, no slurring of speech Results - Labs CBC & Chem 7: 06/04/18 09:25 06/04/18 09:25 Laboratory Results - last 24 hr 06/04/18 06/04/18 09:25 09:25 CBC w Diff Auto diff final WBC 2.9 L RBC 4.22 L Hgb 12.9 L Hct 38.6 L MCV 91.5 MCH 30.4 MCHC 33.3 RDW 13.5 Plt Count 111 L MPV 8.6 Neut % (Auto) 53.6 Lymph % (Auto) 34.9 [place] % (Auto) 7.4 Eos % (Auto) 2.7 Baso % (Auto) 1.4 Neut # (Auto) 1.6 L Lymph # (Auto) 1.0 [place] # (Auto) 0.2 Eos # (Auto) 0.1 Baso # (Auto) 0.0 WBC Differential . Differential Comment . Sodium 141 Potassium 3.6 Chloride 106 Carbon Dioxide 28.6 Anion Gap 6 BUN 32 H Creatinine 1.50 H Estimated GFR 47 L Random Glucose 110 H Calcium 8.4 L - Imaging ITS Impressions Chest X-Ray 06/02/18 13:56 CONCLUSION: 1. No acute abnormality or significant interval change. Head CT 06/02/18 13:56 CONCLUSION: 1. No acute intracranial abnormality or significant interval change. . - Procedures none Assessment and Plan - Plan Acute kidney injury from dehydration. Improving. Continue IV fluid rehydration Recommend reducing protein in diet, replace with high-fiber natural carbohydrates such as vegetables and legumes Follow creatinine level with a.m. labs Type 2 diabetes Accu-Cheks with sliding scale insulin coverage Diabetic diet Hypertension. Continue to hold BP meds. Check for orthostatic hypotension. Fall precautions. PT eval insomnia Patient has a history of insomnia and sleepwalking, ADHD Melatonin prn Mild pancytopenia. Monitor outpatient follow-up history of hepatitis B DVT Prophylaxis Lovenox Discharge Planning: Possible discharge in the morning
--- NOTE | 2018-06-04 13:56 | P.DCO ---
- Physical Therapy Order: Evaluate and treat, Improve ambulation, Strength and gait training - Home Health Nursing Order: Medical education, Nursing assessment with vital signs - Certification I have seen patient Nas Swann on 06/04/18. My clinical findings support the need for the requested home health care services because: Deconditioned with increased weakness I certify that my clinical findings support that this patient is homebound because: Unsteady gait/balance, Need for psychosocial assistance
[2018-06-04] MEDS ORDERED: LORazepam 1 MG Tablet PO PRN (14:00)
[2018-06-04] MEDS: Brimonidine 0.2% Opth Drops 5 ML Bottle EACH EYE SCH (20:55)
[2018-06-04] MEDS: Melatonin 5 MG Tablet PO SCH (20:58)
[2018-06-04] MEDS ORDERED: AMPHETAMINE 20 MG PO SCH (21:00)
[2018-06-05 08:36] VITALS: BP 119/64; PULSE 47; RESP 16; TEMP 97.8; O2SAT 99
[2018-06-05] MEDS ORDERED: Pantoprazole Sodium 20 MG DR Tablet PO SCH (09:00)
[2018-06-05] MEDS: Brimonidine 0.2% Opth Drops 5 ML Bottle EACH EYE SCH (09:48)
--- NOTE | 2018-06-05 11:45 | P.DS ---
Date of admission: 06/02/18 15:54 Primary care physician: UNKNOWN Brief History from admission: 67-year-old male with a history of hepatitis B, sleep apnea, ADHD, Mnire's disease presents to the ER following a fall that occurred 4 days ago and subsequent periods of loss of thought (confusion). He decided after 2-3 days to come into the ER when his symptoms of lightheadedness and confusion were not resolving on their own. He gives me a protracted history that includes some interesting metabolic tid bits. Last September 19 he weighed 330 pounds, he started walking and eating a low-carb high-protein diet. He increased his walking over time to 10 miles per day and managed to lose 100 pounds. He felt good so he adopted bike riding and currently rides his bike 5 miles to the [employer] 3 times a week and progresses to work out aggressively on the circuits. He has a habit of drinking approximately 3 gallons of water daily. Patient denies any nausea vomiting or diarrhea. Patient denies any chest pain, arrhythmia, diaphoresis. DS: Diagnosis - Discharge Diagnosis (1) Acute kidney insufficiency Status: Acute DS: Summary Hospital Course: Acute kidney injury from dehydration. Improving on IV fluid rehydration Recommend reducing protein in diet, replace with high-fiber natural carbohydrates such as vegetables and legumes Follow creatinine level o/p Type 2 diabetes Accu-Cheks with sliding scale insulin coverage Diabetic diet Hypertension. Continue to hold BP meds. Check for orthostatic hypotension. Fall precautions. PT eval insomnia Patient has a history of insomnia and sleepwalking, ADHD Melatonin prn Mild pancytopenia. Monitor outpatient follow-up history of hepatitis B SB. Asymptomatic. Outpatient follow-up DVT Prophylaxis Lovenox - Time Spent with Patient Total time spent providing and/or coordinating discharge services: Less than 30 minutes - Quality: VTE Deep Vein Thrombosis/Pulmonary Embolism Present on Admission: No Exam Vital signs: Vital Signs 06/04/18 12:00 06/04/18 17:25 06/04/18 20:00 Temperature 96.9 F L 97.5 F L 97.1 F L Pulse Rate 54 L 52 L 52 L Respiratory Rate 20 20 20 Blood Pressure 120/70 124/69 104/59 L Pulse Oximetry 97 98 98 06/05/18 00:00 06/05/18 08:00 Temperature 96.6 F L 97.8 F Pulse Rate 49 L 47 L Respiratory Rate 18 16 Blood Pressure 112/56 L 119/64 Pulse Oximetry 100 99 Intake & Output 06/04/18 06/05/18 06/05/18 18:59 06:59 18:59 Intake Total 1685 / 1685 1240 / 1240 1005 / 1005 Output Total 700 / 700 Balance 1685 / 1685 540 / 540 1005 / 1005 Intake: IV 1005 / 1005 1000 / 1000 1005 / 1005 KCl Inj 10 MEQ In NS Inj 1,000 1005 / 1005 1000 / 1000 1005 / 1005 ML @ 100 mls/hr IV.CONT .Q10H3M [facility] Rx#:[id number] Oral 680 / 680 240 / 240 Output: Urine 700 / 700 Other: # Voids 450 4 Date of Last Bowel Movement 06/03/18 06/03/18 Narrative: GENERAL: AAOx3, no acute distress SKIN: Warm and dry. No rashes. 1 cm basal cell carcinoma on posterior right calf at sock line CARDIOVASCULAR: Regular rhythm. Bradycardic. No murmurs, gallops, or rubs. RESPIRATORY: Breath sounds clear equal bilaterally. No crackles or wheezes. No accessory muscle use. GASTROINTESTINAL: Abdomen soft, non-tender, nondistended, normal active bowel sounds MUSCULOSKELETAL: No cyanosis, or edema. NEURO: CN II-XII grossly intact, no focal deficits, no slurring of speech Results Procedures completed during hospitalization: none - Impressions ITS Impressions Chest X-Ray 06/02/18 13:56 CONCLUSION: 1. No acute abnormality or significant interval change. Head CT 06/02/18 13:56 CONCLUSION: 1. No acute intracranial abnormality or significant interval change. . Discharge Plan - Discharge Disposition Patient Disposition: /Home Health Service - Discharge Condition Condition: Stable - Discharge Order Discharge Orders: Discharge Order (Routine); Ordered 06/05/18 Ordered By: Barber Young - Physicians Team Primary Care Provider: UNKNOWN, Attending Provider: Barber Young Other Providers: ; [employer]
== END 2018-06-05 10:17 | disposition home health service (06) ==
LOC: PH3 12:57 → PHEDA 12:57 → PHED 12:57 → PH3 17:40
PROVIDERS: ADMIT Internal Medicine; ATTEND Internal Medicine

== ENCOUNTER 2018-07-12 11:21 | Observation (INO) ==
[2018-07-12 12:12] LABS: Baso # (Auto) 0.1 th/mm3 (0.0-0.2); Baso % (Auto) 1.2 % (0.0-2.0); Eos # (Auto) 0.2 th/mm3 (0.0-0.4); Eos % (Auto) 3.7 % (0.0-4.0); Hematocrit 36.7 % (39.0-51.0); Hemoglobin 12.3 gm/dL (13.0-17.0); Lymph # (Auto) 1.3 th/mm3 (1.0-4.8); Lymph % (Auto) 30.6 % (9.0-44.0); Mean Corpuscular HGB Conc 33.5 % (32.0-36.0); Mean Corpuscular Hemoglobin 31.4 pg (27.0-34.0); Mean Corpuscular Volume 93.8 fL (80.0-100.0); Mean Platelet Volume 8.1 fL (7.0-11.0); Mono # (Auto) 0.4 th/mm3 (0.0-0.9); Mono % (Auto) 8.9 % (0.0-8.0); Neut # (Auto) 2.3 th/mm3 (1.8-7.7); Neut % (Auto) 55.6 % (16.0-70.0); Platelet Count 163 th/mm3 (150-450); Red Blood Count 3.91 mil/mm3 (4.50-5.90); Red Cell Distribution Width 13.3 % (11.6-17.2); White Blood Count 4.3 th/mm3 (4.0-11.0)
--- NOTE | 2018-07-12 12:15 | XR ---
EXAM DATE: 07/12/2018 11:48 AM EDT AGE/SEX: 67 years / Male INDICATIONS: Shortness of breath and low heart rate. CLINICAL DATA: This is the patient's initial encounter. Patient reports that signs and symptoms have been present for 1 day and indicates a pain score of 0/10. MEDICAL/SURGICAL HISTORY: . Chronic obstructive pulmonary disease. Hepatitis B. None. COMPARISON: [facility], CHEST 1V SINGLE AP, 06/02/2018. . FINDINGS: A single AP view of the chest demonstrates the lungs to be symmetrically aerated without evidence of mass, infiltrate or effusion. The cardiomediastinal contours are unremarkable except tortuous aorta. Osseous structures are intact. CONCLUSION: No active disease. Tortuous aorta. Mild scoliosis. Electronically signed by: Petr Pendleton MD 07/12/2018 12:14 PM EDT
[2018-07-12 12:25] LABS: Chloride 106 meq/L (98-107); Potassium 3.7 meq/L (3.5-5.1); Sodium 141 meq/L (136-145)
[2018-07-12 12:29] LABS: Activated Partial Thrombo Time 26.4 sec (24.3-30.1); INR 1.1 Ratio; Prothrombin Time 10.7 sec (9.8-11.6)
[2018-07-12 12:38] LABS: Calcium 8.3 mg/dL (8.5-10.1)
[2018-07-12 12:39] LABS: Albumin 3.9 g/dL (3.4-5.0); Anion Gap 10 meq/L (5-15); Blood Urea Nitrogen 14 mg/dL (7-18); Carbon Dioxide 24.6 meq/L (21.0-32.0); Glucose,Random 92 mg/dL (74-106)
[2018-07-12 12:42] LABS: Alanine Aminotransferase 16 U/L (12-78); Aspartate Aminotransferase 25 U/L (15-37); Glomerular Filtration Rate 67 mL/min (>89)
[2018-07-12 12:44] LABS: Total Protein 6.9 g/dL (6.4-8.2)
[2018-07-12 12:45] LABS: Alkaline Phosphatase 73 U/L (45-117); Creatine Kinase 645 U/L (39-308)
[2018-07-12 12:57] LABS: CKMB Percent 0.4 % (0.0-4.0); Creatine Kinase MB 2.5 ng/mL (0.5-3.6)
--- NOTE | 2018-07-12 13:51 | ED ---
HPI General Chief complaint: Arrhythmia / Palpitations Stated complaint: high BP/irregular heart beat-sent by Time Seen by Provider: 07/12/18 11:32 Source: patient Mode of arrival: ambulatory Limitations: no limitations History of Present Illness HPI narrative: Patient is a 67 year old male who comes in because his sleep doctor told him to. He says yesterday he took his blood pressure and it was very high. He says he called his PMD who told him to take a Losartan. He reports he took 2 of his Metoprolol last night and one this morning and 2 of his Losartan. He says he went to a scheduled appointment today and his pulse was noticed to be 29 and he was told to come here. He says he has not had any symptoms. He denies dizziness, shortness of breath, chest pain. Severity is mild. Related Data Home Medications Medication Instructions Recorded Confirmed Restasis 0.05 % EACH EYE DAILY 06/02/18 07/12/18 brimonidine 0.2 % EACH EYE BID 06/02/18 07/12/18 dextroamphetamine-amphetamine 20 mg PO BID 06/02/18 07/12/18 [Adderall] entecavir 0.5 mg PO DAILY 06/02/18 07/12/18 lorazepam 1 mg PO TID 06/02/18 07/12/18 omeprazole 20 mg PO DAILY 06/02/18 07/12/18 Allergies Allergy/AdvReac Type Severity Reaction Status Date / Time hydrocodone Allergy Intermediate Cold, Verified 07/12/18 11:26 lowered pulse codeine Allergy Unknown Nausea/Vomi Verified 07/12/18 11:26 ting Review of Systems ROS: all other systems reviewed are negative Constitutional Denies chills and Denies fever(s) ENT Denies dizziness Cardiovascular Denies chest pain and Denies syncope Respiratory Denies cough and Denies dyspnea Gastrointestinal Denies nausea and Denies vomiting Musculoskeletal Denies myalgias and Denies arthralgias Integumentary/Breasts Denies rash and Denies wounds Neurologic Denies focal weakness and Denies numbness [facility] Medical History Medical History ADHD (Acute) HTN (hypertension) (Acute) Hx of renal failure (Acute) Sleep apnea (Acute) Surgical History Surgical History History of prostate surgery (Acute) Hx of tonsillectomy (Acute) Family History Family History Other Hypertension Social History Social History Substance History: No History of Abuse Second Hand Smoke Exposure: No Smoking Status: Former smoker Tobacco Type: Cigarettes How Often Do You Have a Drink Containing Alcohol: Monthly or less Recent Travel in [facility] within the Last 8 Weeks: No Recent Out of Country Travel within the Last 8 Weeks: No Immunization History Tetanus Immunization: <5 Years Tetanus Immunization Year if Known: 2013 Hx Influenza Vaccine This Season: No Exam Narrative Exam Narrative: GENERAL: Awake and alert, in no acute distress. SKIN: Focused skin assessment warm/dry. HEAD: Atraumatic. Normocephalic. EYES: Pupils equal and round. No scleral icterus. ENT: Mucous membranes pink and moist. NECK: Trachea midline. No JVD. CARDIOVASCULAR: Bradycardia. No murmur appreciated. RESPIRATORY: No accessory muscle use. Clear to auscultation. Breath sounds equal bilaterally. GASTROINTESTINAL: Abdomen soft, non-tender, nondistended. MUSCULOSKELETAL: No obvious deformities. No clubbing. No cyanosis. No edema. NEUROLOGICAL: Awake and alert. No obvious cranial nerve deficits. Motor grossly within normal limits. Normal speech. PSYCHIATRIC: Appropriate mood and affect; insight and judgment normal. Course Initial Documented Vital Signs Temperature 97.9 F 07/12/18 11:26 Pulse Rate 38 L 07/12/18 11:26 Respiratory Rate 16 07/12/18 11:26 Blood Pressure 146/66 H 07/12/18 11:26 Pulse Oximetry 100 07/12/18 11:26 Last Documented Vital Signs Temperature 97.9 F 07/12/18 11:26 Pulse Rate 40 L 07/12/18 14:53 Respiratory Rate 16 07/12/18 14:53 Blood Pressure 118/67 07/12/18 14:53 Pulse Oximetry 98 07/12/18 14:53 Medical Decision Making MDM Narrative Medical decision making narrative: Patient is a 67-year-old male who comes in due to bradycardia. He does report taking multiple doses of metoprolol and losartan. He is currently asymptomatic. IV established, labs sent. Labs show a CK of 600, no other acute abnormalities. Patient given 2 doses of glucagon without any improvement. Given IV fluids. His blood pressure has remained stable while in the emergency department. His pulses remained in the high 30s, low 40s. He continues to be asymptomatic. I spoke with Dr. Madrid of cardiology who suggests observation to make sure his pulse rebounds as his medication wears off. Medical Screen Exam Complete: Yes Emergency Medical Condition: Yes Differential Diagnosis Differential Diagnosis: medication overdose vs electrolyte abnormalities vs dehydration Medical Records Medical records reviewed: Yes I reviewed the patient's medical records. Lab Data Lab results reviewed: Yes I reviewed the patient's lab results. Result diagrams: 07/12/18 11:55 07/12/18 11:55 Lab Results 07/12/18 07/12/18 07/12/18 Range/Units 11:55 11:55 11:55 CBC w Diff Auto diff final WBC 4.3 (4.0-11.0) th/mm3 RBC 3.91 L (4.50-5.90) mil/mm3 Hgb 12.3 L (13.0-17.0) gm/dL Hct 36.7 L (39.0-51.0) % MCV 93.8 (80.0-100.0) fL MCH 31.4 (27.0-34.0) pg MCHC 33.5 (32.0-36.0) % RDW 13.3 (11.6-17.2) % Plt Count 163 (150-450) th/mm3 MPV 8.1 (7.0-11.0) fL Neut % (Auto) 55.6 (16.0-70.0) % Lymph % (Auto) 30.6 (9.0-44.0) % [place] % (Auto) 8.9 H (0.0-8.0) % Eos % (Auto) 3.7 (0.0-4.0) % Baso % (Auto) 1.2 (0.0-2.0) % Neut # (Auto) 2.3 (1.8-7.7) th/mm3 Lymph # (Auto) 1.3 (1.0-4.8) th/mm3 [place] # (Auto) 0.4 (0.0-0.9) th/mm3 Eos # (Auto) 0.2 (0.0-0.4) th/mm3 Baso # (Auto) 0.1 (0.0-0.2) th/mm3 WBC Differential . Differential Comment . PT 10.7 (9.8-11.6) sec INR 1.1 Ratio APTT 26.4 (24.3-30.1) sec Sodium 141 (136-145) meq/L Potassium 3.7 (3.5-5.1) meq/L Chloride 106 (98-107) meq/L Carbon Dioxide 24.6 (21.0-32.0) meq/L Anion Gap 10 (5-15) meq/L BUN 14 (7-18) mg/dL Creatinine 1.10 (0.60-1.30) mg/dL Estimated GFR 67 L (>89) mL/min Random Glucose 92 (74-106) mg/dL Calcium 8.3 L (8.5-10.1) mg/dL Total Bilirubin 0.8 (0.2-1.0) mg/dL AST 25 (15-37) U/L ALT 16 (12-78) U/L Alkaline Phosphatase 73 (45-117) U/L Total Creatine Kinase 645 H (39-308) U/L CK-MB (CK-2) 2.5 (0.5-3.6) ng/mL CK-MB (CK-2) % 0.4 (0.0-4.0) % Troponin I Less than 0.02 L (0.02-0.05) ng/mL Total Protein 6.9 (6.4-8.2) g/dL Albumin 3.9 (3.4-5.0) g/dL Imaging Data Radiologist's impression: Chest X-Ray 07/12/18 11:48 CONCLUSION: No active disease. Tortuous aorta. Mild scoliosis. ECG Data EKG Prior to Arrival: No Attestation: I personally reviewed and interpreted this ECG as follows: Interpretation: ECG shows sinus bradycardia, no ST elevation or depression, normal intervals. Discharge Plan Discharge Disposition Patient Disposition: 30 Still Patient Discharge Condition Condition: Stable Discharge Details Diagnosis: Bradycardia Physicians Team ED Provider: Sirisha Medina Rxs /Orders / Referrals /Forms Prescriptions: No Action dextroamphetamine-amphetamine [Adderall] 20 mg Tablet 20 mg PO BID RF: 0 entecavir 0.5 mg PO DAILY RF: 0 lorazepam 1 mg PO TID RF: 0 omeprazole 20 mg PO DAILY RF: 0 Restasis drops 0.05 % EACH EYE DAILY RF: 0 brimonidine drops 0.2 % EACH EYE BID RF: 0 Status ED Status: With Doctor
[2018-07-12] MEDS ORDERED: Sodium Chlor 0.9% Inj 500 ML IV.SIG SCH (14:00)
[2018-07-12] MEDS ORDERED: Bisacodyl 10 MG Supp RECTAL PRN (15:32)
--- NOTE | 2018-07-12 15:40 | P.HPIM ---
History of Present Illness Primary Care Physician: Louie Preston History of Present Illness: Mr. Swann is a 67-year-old male. He is sent in today from a sleep study lab secondary to bradycardia. The patient reports that yesterday he was having some hypertensive urgency with systolic blood pressures into the 200s. Since yesterday afternoon he has taken 3 metoprolol treatments and 3 losartan treatments. Blood pressures are now controlled. However heart rate was 29 when he was at his procedure today and he was sent to the ER. Heart rate continues to be in the upper 30s and low 40s despite 3 administrations of glucagon in the ER. Patient is asymptomatic. He has been off his BP treatments (metoprolol and losartan) after having an episode of dehydration and acute renal failure. BUN and Creatinine are within normal limits today. No presyncope/syncope, dizziness, headache, chest pain, or fatigue reported. Review of Systems Constitutional: No fevers, no chills no night sweats, no fatigue, no weakness Eyes: No eye pain, no blurry vision, no loss of vision ENT: No sore throat, no ear pain, no rhinorrhea Cardiovascular: No chest pain, no tachycardia, no palpitations, no shortness of breath, no syncope, bradycardia Respiratory: No wheezing, no cough, no shortness of breath Gastrointestinal: No abdominal pain, no black tarry stools, no bright red blood per rectum, no vomiting, no diarrhea Musculoskeletal: No joint pain, no muscle cramps, no stiffness Integumentary: No rash, no ulcers, no drainage Neurologic: No sensory loss, no loss of motor function, no dizziness Psychiatric: No behavioral changes, no hallucinations, no suicidal ideations PMFSH - History History Provided By: Patient - Medical History Medical History: Medical History (Last Reviewed 07/12/18 @ 14:04 by Sirisha Medina MD) ADHD HTN (hypertension) Hx of renal failure Sleep apnea - Surgical History Surgical History: Surgical History (Last Reviewed 07/12/18 @ 14:04 by Sirisha Medina MD) History of prostate surgery Hx of tonsillectomy - Family History Family History: Family History (Last Reviewed 07/12/18 @ 14:04 by Sirisha Medina MD) Other Hypertension - Tobacco History Second Hand Smoke Exposure: No Smoking Status: Former smoker Tobacco Type: Cigarettes - Alcohol History How Often Do You Have a Drink Containing Alcohol: Monthly or less - Substance Use History Substance History: No History of Abuse - Travel History Recent Travel in the [place] Within the Last 8 Weeks: No Recent Travel Out of the Country Within the Last 8 Weeks: No - Immunization History Tetanus Immunization: <5 Years Tetanus Immunization Year if Known: 2013 Hx Influenza Vaccine This Season: No Medications and Allergies Active Medications: Active Medications Sodium Chloride (Ns Inj) 500 mls @ 0 mls/hr IV.SIG BOLUS TERESSA Sodium Chloride (Ns Flush) 2 ml IV.FLUSH UNSCH PRN PRN Reason: FLUSH AFTER USING IV ACCESS Last Admin: 07/12/18 13:05 Dose: 2 ml Allergies Allergy/AdvReac Type Severity Reaction Status Date / Time hydrocodone Allergy Intermediate Cold, Verified 07/12/18 11:26 lowered pulse codeine Allergy Unknown Nausea/Vomi Verified 07/12/18 11:26 ting Home Medications Medication Instructions Recorded Confirmed Type Restasis 0.05 % EACH EYE DAILY 06/02/18 07/12/18 History brimonidine 0.2 % EACH EYE BID 06/02/18 07/12/18 History dextroamphetamine-amphetamine 20 mg PO BID 06/02/18 07/12/18 History [Adderall] entecavir 0.5 mg PO DAILY 06/02/18 07/12/18 History lorazepam 1 mg PO TID 06/02/18 07/12/18 History omeprazole 20 mg PO DAILY 06/02/18 07/12/18 History Exam Vital signs: Vital Signs 07/12/18 11:26 07/12/18 12:00 07/12/18 12:03 Temperature 97.9 F Pulse Rate 38 L 53 L Respiratory Rate 16 Blood Pressure 146/66 H Pulse Oximetry 100 95 95 07/12/18 12:05 07/12/18 12:35 07/12/18 13:36 Temperature Pulse Rate 53 L 44 L 41 L Respiratory Rate 18 18 16 Blood Pressure 150/73 H 123/82 113/68 Pulse Oximetry 95 98 98 07/12/18 14:53 07/12/18 15:33 Temperature 98.0 F Pulse Rate 40 L 40 L Respiratory Rate 16 18 Blood Pressure 118/67 131/71 Pulse Oximetry 98 98 Intake & Output 07/11/18 07/12/18 07/12/18 18:59 06:59 18:59 Weight 102 kg Narrative: GENERAL: NAD, A&Ox3 HEAD: Normocephalic. NECK: Supple, trachea midline. No lymphadenopathy. EYES: No scleral icterus. No injection or drainage. CARDIOVASCULAR: Regular rate and bradycardic rhythm without murmurs, gallops, or rubs. RESPIRATORY: Breath sounds equal bilaterally. No accessory muscle use. GASTROINTESTINAL: Abdomen soft, non-tender, nondistended. MUSCULOSKELETAL: No cyanosis, or edema. SKIN: Warm and dry. NEURO: No focal neurological deficits. Results - Labs CBC & Chem 7: 07/12/18 11:55 07/12/18 11:55 Labs: Short CBC 07/12/18 Range/Units 11:55 WBC 4.3 (4.0-11.0) th/mm3 Hgb 12.3 L (13.0-17.0) gm/dL Hct 36.7 L (39.0-51.0) % Plt Count 163 (150-450) th/mm3 BMP 07/12/18 11:55 Sodium 141 Potassium 3.7 Chloride 106 Carbon Dioxide 24.6 BUN 14 Creatinine 1.10 Calcium 8.3 L Cardiac Enzymes 07/12/18 Range/Units 11:55 Total Creatine Kinase 645 H (39-308) U/L CK-MB (CK-2) 2.5 (0.5-3.6) ng/mL Troponin I Less than 0.02 L (0.02-0.05) ng/mL Liver Function 07/12/18 Range/Units 11:55 Total Bilirubin 0.8 (0.2-1.0) mg/dL AST 25 (15-37) U/L ALT 16 (12-78) U/L Alkaline Phosphatase 73 (45-117) U/L Albumin 3.9 (3.4-5.0) g/dL - Imaging Impressions Chest X-Ray 07/12/18 11:48 CONCLUSION: No active disease. Tortuous aorta. Mild scoliosis. Caprini VTE Risk Assessment Caprini VTE Risk Assessment: No/Low Risk (score <= 1) Caprini Risk Assessment Model: Point Value = 1 Point Value = 2 Point Value = 3 Point Value = 5 Age 41-60 Minor surgery BMI > 25 kg/m2 Swollen legs Varicose veins or History of unexplained or recurrent spontaneous Oral contraceptives or hormone replacement Sepsis (< 1 month) Serious lung disease, including pneumonia (< 1 month) Abnormal pulmonary function Acute myocardial infarction Congestive heart failure (< 1 month) History of inflammatory bowel disease Medical patient at bed rest Age 61-74 Arthroscopic surgery Major open surgery (> 45 min) Laparoscopic surgery (> 45 min) Malignancy Confined to bed (> 72 hours) Immobilizing plaster cast Central venous access Age >= 75 History of VTE Family history of VTE Factor V Leiden Prothrombin [id number] Lupus anticoagulant Anticardiolipin antibodies Elevated serum homocysteine Heparin-induced thrombocytopenia Other congenital or acquired thrombophilia Stroke (< 1 month) Elective arthroplasty Hip, pelvis, or leg fracture Acute spinal cord injury (< 1 month) Prophylaxis Regimen: Total Risk Factor Score Risk Level Prophylaxis Regimen 0-1 Low Early ambulation 2 Moderate Order ONE of the following: *Sequential Compression Device (SCD) *Heparin 5000 units SQ BID 3-4 Higher Order ONE of the following medications: *Heparin 5000 units SQ TID *Enoxaparin/Lovenox 40 mg SQ daily (WT < 150 kg, CrCl > 30 mL/min) *Enoxaparin/Lovenox 30 mg SQ daily (WT < 150 kg, CrCl > 10-29 mL/min) *Enoxaparin/Lovenox 30 mg SQ BID (WT < 150 kg, CrCl > 30 mL/min) AND/OR *Sequential Compression Device (SCD) 5 or more Highest Order ONE of the following medications: *Heparin 5000 units SQ TID (Preferred with Epidurals) *Enoxaparin/Lovenox 40 mg SQ daily (WT < 150 kg, CrCl > 30 mL/min) *Enoxaparin/Lovenox 30 mg SQ daily (WT < 150 kg, CrCl > 10-29 mL/min) *Enoxaparin/Lovenox 30 mg SQ BID (WT < 150 kg, CrCl > 30 mL/min) AND *Sequential Compression Device (SCD) Assessment and Plan - Plan 67-year-old male admitted secondary to bradycardia which is occurring after excess beta-chava use Bradycardia Secondary to beta-chava excess Follow on telemetry Avoid beta-blockers for now Follow blood pressures Follow heart rate This should correct overnight Hypertension Hold beta-chava for now Continue losartan Follow blood pressures Adjust treatments as needed Continue as needed clonidine ADHD Continue to follow as an outpatient Sleep apnea No change in baseline treatments DVT prophylaxis SCDs
[2018-07-12] MEDS: Senna/Docusate Sodium 8.6/50 MG Tablet PO SCH (20:15)
--- NOTE | 2018-07-12 22:56 | ECG ---
Date Performed: 07/12/2018 Time Performed: 11:36:00 PTAGE: 67 years EKG: SINUS BRADYCARDIA BORDERLINE ECG PREVIOUS TRACING : 06/02/2018 14.09 Compared to previous tracing, rate slower DOCTOR: Rosamaria Vargas Interpretating Date/Time 07/12/2018 22:56:19
[2018-07-13 00:21] VITALS: O2SAT 99
[2018-07-13 04:51] LABS: Baso % (Auto) 0.7 % (0.0-2.0); Eos # (Auto) 0.1 th/mm3 (0.0-0.4); Eos % (Auto) 3.3 % (0.0-4.0); Hematocrit 35.7 % (39.0-51.0); Hemoglobin 11.8 gm/dL (13.0-17.0); Lymph # (Auto) 1.3 th/mm3 (1.0-4.8); Lymph % (Auto) 37.4 % (9.0-44.0); Mean Corpuscular HGB Conc 33.2 % (32.0-36.0); Mean Corpuscular Volume 93.5 fL (80.0-100.0); Mean Platelet Volume 8.7 fL (7.0-11.0); Mono # (Auto) 0.3 th/mm3 (0.0-0.9); Mono % (Auto) 9.2 % (0.0-8.0); Neut # (Auto) 1.7 th/mm3 (1.8-7.7); Neut % (Auto) 49.4 % (16.0-70.0); Platelet Count 117 th/mm3 (150-450); Red Blood Count 3.82 mil/mm3 (4.50-5.90); Red Cell Distribution Width 13.4 % (11.6-17.2); White Blood Count 3.4 th/mm3 (4.0-11.0)
[2018-07-13 05:00] LABS: Chloride 107 meq/L (98-107); Potassium 3.4 meq/L (3.5-5.1); Sodium 141 meq/L (136-145)
[2018-07-13 05:03] LABS: Calcium 7.9 mg/dL (8.5-10.1)
[2018-07-13 05:34] VITALS: BP 143/74; RESP 14
[2018-07-13 05:42] LABS: Alanine Aminotransferase 16 U/L (12-78); Albumin 3.3 g/dL (3.4-5.0); Alkaline Phosphatase 65 U/L (45-117); Anion Gap 8 meq/L (5-15); Aspartate Aminotransferase 24 U/L (15-37); Blood Urea Nitrogen 17 mg/dL (7-18); Carbon Dioxide 26.4 meq/L (21.0-32.0); Glomerular Filtration Rate 75 mL/min (>89); Glucose,Random 86 mg/dL (74-106)
[2018-07-13 08:16] VITALS: TEMP 97.8
[2018-07-13] MEDS: Senna/Docusate Sodium 8.6/50 MG Tablet PO SCH (09:03)
[2018-07-13 09:07] VITALS: PULSE 50
--- NOTE | 2018-07-13 09:11 | P.DS ---
Date of admission: 07/12/18 15:31 Primary care physician: Louie Preston Brief History from admission: Mr. Swann is a 67-year-old male. He is sent in today from a sleep study lab secondary to bradycardia. The patient reports that yesterday he was having some hypertensive urgency with systolic blood pressures into the 200s. Since yesterday afternoon he has taken 3 metoprolol treatments and 3 losartan treatments. Blood pressures are now controlled. However heart rate was 29 when he was at his procedure today and he was sent to the ER. Heart rate continues to be in the upper 30s and low 40s despite 3 administrations of glucagon in the ER. Patient is asymptomatic. He has been off his BP treatments (metoprolol and losartan) after having an episode of dehydration and acute renal failure. BUN and Creatinine are within normal limits today. No presyncope/syncope, dizziness, headache, chest pain, or fatigue reported. DS: Medications - Discharge Medications Prescriptions: clonidine HCl [Catapres] 0.1 mg PO Q6H PRN #30 tab PRN Reason: Sys Bp Greater Than 160 Mmhg DS: Summary Hospital Course: Mr. Swann is a 67-year-old male. He was admitted secondary to bradycardia with heart rates in the 20s. This was a result of taking up to 3 tabs of metoprolol and losartan to control blood pressure. His blood pressures have been up to 250 systolic. No problems with hypertension during the stay. His heart rate has trended to the upper 40s and 50s at this point. Some of the bradycardia remaining could be related to residual metoprolol. Alternatively he is on Adderall at baseline and has not taken Adderall for 2 days and some of this could be a reactive bradycardia. He is also very active at baseline walking 10 miles a day so his resting heart rate could potentially be no greater than the 50s. At this point he is asymptomatic and medically stable and cleared for discharge to home. He is provided with clonidine to use as needed if he gets another episode of hypertensive urgency. Otherwise he is recommended to avoid metoprolol and losartan for now. - Time Spent with Patient Total time spent providing and/or coordinating discharge services: Less than 30 minutes - Quality: VTE Deep Vein Thrombosis/Pulmonary Embolism Present on Admission: No Exam Vital signs: Vital Signs 07/12/18 11:26 07/12/18 12:00 07/12/18 12:03 Temperature 97.9 F Pulse Rate 38 L 53 L Respiratory Rate 16 Blood Pressure 146/66 H Pulse Oximetry 100 95 95 07/12/18 12:05 07/12/18 12:35 07/12/18 13:36 Temperature Pulse Rate 53 L 44 L 41 L Respiratory Rate 18 18 16 Blood Pressure 150/73 H 123/82 113/68 Pulse Oximetry 95 98 98 07/12/18 14:53 07/12/18 15:33 07/12/18 16:20 Temperature 98.0 F Pulse Rate 40 L 40 L Respiratory Rate 16 18 Blood Pressure 118/67 131/71 137/70 Pulse Oximetry 98 98 07/12/18 16:21 07/12/18 16:40 07/12/18 18:19 Temperature 97.5 F L Pulse Rate 54 L 60 48 L Respiratory Rate 15 34 H 13 Blood Pressure 131/69 112/64 Pulse Oximetry 07/12/18 19:19 07/12/18 20:00 07/12/18 22:02 Temperature 98.2 F Pulse Rate 50 L 41 L 46 L Respiratory Rate 14 14 16 Blood Pressure 126/66 126/78 150/76 H Pulse Oximetry 99 07/13/18 00:00 07/13/18 04:00 07/13/18 04:10 Temperature 97.6 F 98.1 F Pulse Rate 44 L 46 L 46 L Respiratory Rate 11 L 14 Blood Pressure 136/67 143/74 H Pulse Oximetry 99 99 07/13/18 08:00 Temperature 97.8 F Pulse Rate Respiratory Rate Blood Pressure Pulse Oximetry Intake & Output 07/12/18 07/13/18 07/13/18 18:59 06:59 18:59 Intake Total 500 / 500 360 / 360 Output Total 500 / 500 400 / 400 Balance 0 / 0 -40 / -40 Weight 102 kg 102.8 kg Intake: Oral 500 / 500 360 / 360 Output: Urine 500 / 500 400 / 400 Other: # Voids 3 Results Procedures completed during hospitalization: None Labs on day of discharge: Labs from last 24 hours 07/13/18 07/13/18 07/12/18 04:25 04:25 11:55 CBC w Diff Auto diff final WBC 3.4 L RBC 3.82 L Hgb 11.8 L Hct 35.7 L MCV 93.5 MCH 31.0 MCHC 33.2 RDW 13.4 Plt Count 117 L MPV 8.7 Neut % (Auto) 49.4 Lymph % (Auto) 37.4 [place] % (Auto) 9.2 H Eos % (Auto) 3.3 Baso % (Auto) 0.7 Neut # (Auto) 1.7 L Lymph # (Auto) 1.3 [place] # (Auto) 0.3 Eos # (Auto) 0.1 Baso # (Auto) 0.0 WBC Differential . Differential Comment . PT INR APTT Sodium 141 141 Potassium 3.4 L 3.7 Chloride 107 106 Carbon Dioxide 26.4 24.6 Anion Gap 8 10 BUN 17 14 Creatinine 0.99 1.10 Estimated GFR 75 L 67 L Random Glucose 86 92 Calcium 7.9 L 8.3 L Total Bilirubin 0.5 0.8 AST 24 25 ALT 16 16 Alkaline Phosphatase 65 73 Total Creatine Kinase 645 H CK-MB (CK-2) 2.5 CK-MB (CK-2) % 0.4 Troponin I Less than 0.02 L Total Protein 6.0 L D 6.9 Albumin 3.3 L D 3.9 07/12/18 07/12/18 11:55 11:55 CBC w Diff Auto diff final WBC 4.3 RBC 3.91 L Hgb 12.3 L Hct 36.7 L MCV 93.8 MCH 31.4 MCHC 33.5 RDW 13.3 Plt Count 163 MPV 8.1 Neut % (Auto) 55.6 Lymph % (Auto) 30.6 [place] % (Auto) 8.9 H Eos % (Auto) 3.7 Baso % (Auto) 1.2 Neut # (Auto) 2.3 Lymph # (Auto) 1.3 [place] # (Auto) 0.4 Eos # (Auto) 0.2 Baso # (Auto) 0.1 WBC Differential . Differential Comment . PT 10.7 INR 1.1 APTT 26.4 Sodium Potassium Chloride Carbon Dioxide Anion Gap BUN Creatinine Estimated GFR Random Glucose Calcium Total Bilirubin AST ALT Alkaline Phosphatase Total Creatine Kinase CK-MB (CK-2) CK-MB (CK-2) % Troponin I Total Protein Albumin - Impressions ITS Impressions Chest X-Ray 07/12/18 11:48 CONCLUSION: No active disease. Tortuous aorta. Mild scoliosis. Discharge Plan - Discharge Disposition Patient Disposition: Discharge Home - Discharge Condition Condition: Stable - Discharge Order Discharge Orders: Discharge Order (Routine); Ordered 07/13/18 Ordered By: Pola Wilhelm - Discharge Details Anticipated Discharge Date: 07/13/18 - Physicians Team Attending Provider: Pola Wilhelm
== END 2018-07-13 10:40 | disposition home or self-care (01) ==
LOC: PHEDA 11:21 → PHED 11:21 → PHICU 16:15
PROVIDERS: ADMIT Hospitalist; ATTEND Hospitalist